=== PATIENT | female | born 1945 | race Asian ===

== ENCOUNTER → 2020-08-04 | Outpatient (CLI) | payer MEDICARE, MEDICAID | LOC: MHCPAIN 08:50 | DX: M47.816 Spondylosis without myelopathy or radiculopathy, lumbar region (principal); M48.54XA Collapsed vertebra, not elsewhere classified, thoracic region, initial encounter for fracture; M54.5 Low back pain; G89.29 Other chronic pain | CPT/HCPCS: G0463 ==

== ENCOUNTER → 2020-09-08 | Outpatient (CLI) | payer MEDICARE, MEDICAID | LOC: MHCPAIN 09:58 | DX: M47.816 Spondylosis without myelopathy or radiculopathy, lumbar region (principal); M54.5 Low back pain; M53.3 Sacrococcygeal disorders, not elsewhere classified; G89.29 Other chronic pain | CPT/HCPCS: G0463 ==

== ENCOUNTER → 2020-09-16 | Outpatient (CLI) | payer MEDICARE, MEDICAID | LOC: MHCPAIN 14:06 | DX: M47.817 Spondylosis without myelopathy or radiculopathy, lumbosacral region (principal); M54.5 Low back pain; M53.3 Sacrococcygeal disorders, not elsewhere classified | CPT/HCPCS: J1040; Q9967 ==

== ENCOUNTER → 2020-10-13 | Outpatient (CLI) | payer MEDICARE, MEDICAID | LOC: MHCPAIN 10:21 | DX: M47.816 Spondylosis without myelopathy or radiculopathy, lumbar region (principal); M47.814 Spondylosis without myelopathy or radiculopathy, thoracic region; M54.5 Low back pain | CPT/HCPCS: G0463 ==

== ENCOUNTER 2021-05-21 10:46 | Emergency (ER) | payer MEDICARE, MEDICAID ==
[~2021-05-21] VITALS: Ht 152.4 cm; Wt 61.4 kg
[2021-05-21] MEDS ORDERED: CELEBREX 1100 MG/CAP PO (11:48)
[2021-05-21] MEDS ORDERED: CYMBALTA 20MG20 MG PO (11:49)
[2021-05-21] MEDS ORDERED: NORVASC 5MG5 MG/TAB PO (11:49)
[2021-05-21] MEDS ORDERED: TOPROL XL 25MG25 MG (11:50)
[2021-05-21] MEDS ORDERED: LIPITOR20 MG PO (11:50)
[2021-05-21 14:07] VITALS: BP 152/64; PULSE 88; TEMP 97.8
== END 2021-05-21 14:09 | disposition home or self-care (01) ==
LOC: COL.ER 10:46
DX: S06.0X9A Concussion with loss of consciousness of unspecified duration, initial encounter (principal); M54.50 Low back pain, unspecified; G89.29 Other chronic pain; I10 Essential (primary) hypertension; E78.5 Hyperlipidemia, unspecified; Z79.899 Other long term (current) drug therapy; W06.XXXA Fall from bed, initial encounter

== ENCOUNTER 2022-09-18 07:40 | Inpatient (IN) | payer MEDICARE, MEDICAID ==
[~2022-09-18] VITALS: Ht 157.5 cm; Wt 62.3 kg
[2022-09-18] VITALS (11 sets, daily range): BP systolic 119–146; BP diastolic 63–73; PULSE 77–103; TEMP 97.6–98.2
[~2022-09-18 07:40] MED LIST: CELEBREX 1100 MG/CAP PO; CYMBALTA 20MG20 MG PO; LIPITOR20 MG PO; NORVASC 5MG5 MG/TAB PO; TOPROL XL 25MG25 MG PO
[2022-09-18 08:17] LABS: BASO % 0.3 % (0.0-2.0); EOS # 0.1 K/mm3 (0.0-0.7); EOS % 1.3 % (0.0-4.0); GRAN # 4.3 K/mm3 (1.4-6.5); GRAN % 67.5 % (42.2-75.2); HEMATOCRIT 41.2 % (37.0-47.0); HEMOGLOBIN 14.3 g/dl (12.5-16.0); LYMPH # 1.4 K/mm3 (1.2-3.4); LYMPH % 21.4 % (20.0-51.0); MEAN CELL VOLUME 93 fl (80.0-100.0); MEAN CORPUSCULAR HEMOGLOBIN 32 pg (27-31); MEAN CORPUSCULAR HGB CONC 35 g/dl (33.0-37.0); MEAN PLATELET VOLUME 8.9 fl (7.4-10.4); MONO # 0.6 K/mm3 (0.1-0.6); PLATELET COUNT 224 K/mm3 (130-400); RED BLOOD COUNT 4.45 M/mm3 (4.10-5.30); REDCELL DISTRIBUTION WIDTH-CV 12.5 % (11.5-14.5)
[2022-09-18 08:31] LABS: ALBUMIN 3.6 gm/dL (3.4-4.8); CALCIUM 8.8 mg/dL (8.4-10.2); CREATININE, serum 0.72 mg/dL (0.57-1.11); POTASSIUM 3.9 mmol/L (3.5-4.5); TOTAL PROTEIN 7.1 gm/dL (6.2-8.1)
[2022-09-18 09:34] LABS: INR 0.9 (0.8-3.0); PROTHROMBIN TIME 10.7 SECONDS (9.7-12.8)
[2022-09-18 10:39] LABS: SQUAMOUS EPITHELIAL None Seen /hpf (0-10); URINE BACTERIA None Seen /hpf (NONE SEEN); URINE RBC 0-2 /hpf (0-2); URINE WBC 0-2 /hpf (0-2)
--- NOTE | 2022-09-18 10:41 | NUR ---
Pt recently arrived to the floor from ED. She is alert and oriented, daughter at bedside also helping to translate. Dr Ramirez and Dr Villanueva both in to see pt. Cornelius catheter placed and UA sent to the lab. RT in completing EKG now. Pt pain is tolerable at rest. Marito hose on her right leg and SCDs on bilaterally.
[2022-09-18 11:16] LABS: URINE APPEARANCE Clear (CLEAR/HAZY); URINE COLOR Yellow (YELLOW)
[2022-09-18 11:17] LABS: COLLECTION METHOD CLEAN CATCH; PH 8.5 (5.0-8.5); URINE BLOOD TRACE-INTACT (NEGATIVE); URINE GLUCOSE Negative (NEGATIVE); URINE KETONE Negative (NEGATIVE); URINE NITRATE Negative (NEGATIVE); URINE PROTEIN(semi-quant) Negative (NEGATIVE); URINE UROBILINOGEN 0.2 E.U/dL (0.2-1.0)
--- NOTE | 2022-09-18 11:46 | NUR ---
Pt off the floor for surgery per Moi Montenegro
--- NOTE | 2022-09-18 14:44 | NUR ---
Pt back from surgery/Pacu. Pt is alert and oriented, slightly drowsy. Daughter is at bedside translating. Drsg to left hip is CDI, ice to left hip. O2 on per oxymask at 4L
--- NOTE | 2022-09-18 17:35 | NUR ---
Pt continues to do well. She did tolerate general diet and is now back sleeping. Daughter has remained at bedside. Pt repositioned to her right side
--- NOTE | 2022-09-18 20:30 | NUR ---
Assessment complete. A&Ox3. Daughter is at bedside and translating. Denies pain/nausea/shortness of breath. VS stable. Dressing to left hip CDI-gauze/tegaderm. SCDs/TEDs/Ice in place. Cornelius cath with clear yellow urine. Tolerating PO. Left hand IV with NS@75ml/hr infusing without difficulty. Plan of care discussed with family/patient for pain control/vitals/antibiotics/calling for questions/concerns. Verbalizes understanding. Call light in reach. Will monitor.
[2022-09-19] VITALS (7 sets, daily range): BP systolic 115–146; BP diastolic 65–69; PULSE 71–84; TEMP 98–98.6
[2022-09-19 07:25] LABS: BASO % 0.2 % (0.0-2.0); GRAN # 4.2 K/mm3 (1.4-6.5); GRAN % 77.5 % (42.2-75.2); HEMATOCRIT 39.1 % (37.0-47.0); HEMOGLOBIN 13.1 g/dl (12.5-16.0); LYMPH # 0.8 K/mm3 (1.2-3.4); LYMPH % 15.2 % (20.0-51.0); MEAN CELL VOLUME 95 fl (80.0-100.0); MEAN CORPUSCULAR HEMOGLOBIN 32 pg (27-31); MEAN CORPUSCULAR HGB CONC 34 g/dl (33.0-37.0); MEAN PLATELET VOLUME 9.6 fl (7.4-10.4); MONO # 0.4 K/mm3 (0.1-0.6); MONO % 6.4 % (1.7-9.3); PLATELET COUNT 218 K/mm3 (130-400); REDCELL DISTRIBUTION WIDTH-CV 12.5 % (11.5-14.5)
[2022-09-19 07:39] LABS: CALCIUM 8.6 mg/dL (8.4-10.2); CREATININE, serum 0.65 mg/dL (0.57-1.11); MAGNESIUM 2.4 mg/dL (1.6-2.6); PHOSPHOROUS 3.2 mg/dL (2.3-4.7); POTASSIUM 3.7 mmol/L (3.5-4.5)
[2022-09-19] MEDS ORDERED: TYLENOL 500MG500 MG PO (10:00)
[2022-09-19] MEDS ORDERED: ASPI325T6 PO (10:00)
[2022-09-19] MEDS ORDERED: DULCOLAX S10 MG/SUPP RC (10:01)
[2022-09-19] MEDS ORDERED: SENOKOT S 50 MG1 TAB PO (10:01)
[2022-09-19] MEDS ORDERED: GOOD SENSE400 MG/5 M PO (10:01)
[2022-09-19] MEDS ORDERED: ROXICODONE 55 MG/TAB PO (10:01)
--- NOTE | 2022-09-19 11:31 | NUR ---
RAJI met with the patient and her daughter, Shari Pat (ph#[phone]), to discuss discharge plan. Shari shares that the patient's primary language is Turkmen, but she speaks and understands some Frisian. The patient lives alone in [place]. Shari also lives in [place]. The patient was independent with ADLs before the fall and does not have any DME. The patient's PCP is Dr. Fallon Logan and she obtains her medications from [facility]. The patient does not have a DPOA-HC in EMR, but Shari states that the patient does have one completed and that it designates her. Shari and the patient were interested in completing one here, so the hospital would have one. RAJI provided the form. The patient verbalized that she would like Shari to make her medical decisions. RAJI and OSMANY Ortega, witnessed the patient's signature. RAJI provided the patient with the original and some copies. RAJI placed a copy in the patient's chart. The patient had a hip fracture. RAJI discussed post-acute rehab upon discharge and provided the patient and Shari with Medicare.gov's list of SNFs in the [place] area. Shari states that they really only prefer [facility] and do not have a second preference. RAJI consulted [facility] Director, Rola. Rola reports that they are able to accept the patient today. The patient is to discharge today, 09/19, to [facility]. No additional needs at this time.
[2022-09-19] MEDS ORDERED: VITAMIN C500 MG PO (12:02)
[2022-09-19] MEDS ORDERED: CALCIUM WITH D31 CTB PO (12:02)
[2022-09-26] MEDS ORDERED: ASPI325T6 PO (09:10)
[2022-09-26] MEDS ORDERED: TYLENOL 500MG500 MG PO (09:11)
[2022-09-26] MEDS ORDERED: MIRALAX238G PO (09:11)
[2022-09-26] MEDS ORDERED: NORVASC2.5 MG PO (09:12)
[2022-09-26] MEDS ORDERED: ROXICODONE 55 MG/TAB PO (09:13)
== END 2022-09-19 11:38 | DRG 482 ==
LOC: COL.ER 07:40 → SURG 09:12
PROVIDERS: Orthopaedic Surgery; Personal Emergency Response Attendant; ADMIT Internal Medicine
PROC: 0QS734Z Reposition Left Upper Femur with Internal Fixation Device, Percutaneous Approach (ICD-10-PCS; principal; 2022-09-18 12:00)
DX: S72.012A Unspecified intracapsular fracture of left femur, initial encounter for closed fracture (principal); E78.5 Hyperlipidemia, unspecified; M81.0 Age-related osteoporosis without current pathological fracture; I10 Essential (primary) hypertension; G89.29 Other chronic pain; W01.0XXA Fall on same level from slipping, tripping and stumbling without subsequent striking against object, initial encounter; Y93.89 Activity, other specified; Y92.89 Other specified places as the place of occurrence of the external cause; Z23 Encounter for immunization
CPT/HCPCS: A4314; C1713; J0690; J1100; J2250; J2270; J2704; J2795; J7030

== ENCOUNTER 2023-06-15 09:52 | Outpatient (CLI) | payer MEDICARE, MEDICAID ==
[~2023-06-15] VITALS: Ht 157.5 cm; Wt 54.5 kg
[~2023-06-15 09:52] MED LIST changes: +ASPI325T6 PO; +CALCIUM WITH D31 CTB PO; +DULCOLAX S10 MG/SUPP RC; +GOOD SENSE400 MG/5 M PO; +MIRALAX238G PO; +NORVASC2.5 MG PO; +ROXICODONE 55 MG/TAB PO; +SENOKOT S 50 MG1 TAB PO; +TYLENOL 500MG500 MG PO; +VITAMIN C500 MG PO
[2023-06-15 10:15] VITALS: PULSE 74; TEMP 98.5
[2023-06-15] MEDS ORDERED: GLUCOPHAGE500 MG/TAB PO (10:27)
--- NOTE | 2023-06-15 10:28 | NUR ---
pt tolerated prolia injection well and was accompanied to main lobby by daughter. vs remained within normal limits and injection was administered by Evangelina CONNOLLY nursing specialist. pt free from acute concerns and complaints at time of discharge.
[2023-06-15] MEDS ORDERED: Denosumab 60 MG/ML SYRINGE SQ ONE (10:30)
== END 2023-06-15 10:29 | disposition home or self-care (01) ==
LOC: EUO 09:52
DX: M81.0 Age-related osteoporosis without current pathological fracture (principal)
CPT/HCPCS: J0897